=== PATIENT | female | born 1990 | race Caucasian/White ===

== ENCOUNTER 2016-08-14 08:16 | Day surgery (SDC) | payer BC, MEDICAID ==
[2016-08-14] MEDS ORDERED: FAMOTIDINE INJ/PF 20 MG/2 ML SDV IV ONE (08:56)
[2016-08-14] MEDS ORDERED: MIDAZOLAM 2 MG/2 ML INJ ONE (09:23)
[2016-08-14] MEDS ORDERED: DEXMEDETOMIDINE INJ 80 MCG/20 ML VIAL IV ONE (09:24)
[2016-08-14] MEDS ORDERED: PROPOFOL INJ 200 MG/20 ML VIAL IV ONE (09:24)
[2016-08-14] MEDS ORDERED: MORPHINE SULFATE 10 MG/ML INJ IV PRN (10:22)
[2016-08-14] MEDS ORDERED: MEPERIDINE HCL/PF INJ 25 MG/1 ML DISP.SYRIN IV PRN (10:22)
[2016-08-14] MEDS ORDERED: DIPHENHYDRAMINE HCL 50 MG/ML VIAL IV PRN (10:22)
[2016-08-14] MEDS ORDERED: FENTANYL CITRATE INJ/PF 100 MCG/2 ML AMPUL IV PRN ×3 (10:22)
[2016-08-14] MEDS ORDERED: OXYCODONE-ACETAMINOPHEN 5-325 MG TABLET PO PRN ×2 (10:22)
[2016-08-14] MEDS ORDERED: PROMETHAZINE HCL INJ 25 MG/1 ML VIAL IV PRN ×2 (10:22)
[2016-08-14] MEDS ORDERED: DEXTROSE 5%-1/2 NORMAL SALINE 1,000 ML IV PRN (10:44)
--- NOTE | 2016-08-14 10:51 | Operative Report ---
Operative Report DATE OF SURGERY: 08/14/16 Operative Report: The risks, benefits and alternatives of the procedure including risks of bleeding, perforation requiring surgery are explained to the patient in detail and informed consent is obtained. Patient is placed in a left, lateral decubital position and brought back to the operating room. Timeout is called. Propofol medications administered. An Olympus videoscope was inserted into the patient's rectum. The scope was then advanced all the way to the cecum. The cecum was identified by the usual anatomical landmarks of the ileocecal valve as well as the appendiceal office. Photodocumentation was obtained. The scope was then sequentially pulled back via the various segments of the colon including the ascending colon, hepatic flexure, transverse colon, splenic flexure, descending colon and finally into the rectosigmoid colon. Prep is good. Following this the patient's stretcher was turned around and the EGD performed The risks benefits and alternatives of the procedure explained to the patient in detail and informed consent is obtained that GIF Olympus video scope was inserted into the patient's mouth and hypopharynx the esophagus is identified intubated and insufflated the scope was then advanced through the esophagus stomach and duodenum retroflexion maneuver is done the esophagus stomach and first and second portions of the duodenum examined PREOPERATIVE DIAGNOSIS: Change of bowel habits. Early satiety POSTOPERATIVE DIAGNOSIS: Mild right-sided inflammation status post biopsy rule out collagenous, microscopic, lymphocytic colitis. There is a submucosal lesion noted around the sigmoid colon. Visualization was not good because the colon is very spastic. It could very well just be herniation into the lumen. However biopsies are obtained the area injected with Y[place]a ink for future location if biopsies are positive. Gastritis status post biopsy. Hiatal hernia. Esophageal ulcer OPERATION: Colonoscopy with submucosal injection. Colonoscopy with biopsy. EGD with biopsy SURGEON: NAYAN ARTHUR ANESTHESIA: LMAC TISSUE REMOVED OR ALTERED: Gastric specimen obtained rule out Helicobacter pylori. Colon specimens obtained as described above COMPLICATIONS: None. ESTIMATED BLOOD LOSS: none. INTRAOPERATIVE FINDINGS: as described above PROCEDURE: Patient tolerated the procedure well. No immediate postprocedure complications are noted. Patient is discharged in good condition. Discharge date 08/14/2016 Discharge diet: Regular. Discharge activity: Regular. Patient does have a 2-3 week follow-up to discuss findings. Patient is instructed to call the office or proceed to the emergency room if there are any further problems or questions. We'll follow-up on biopsy.
[2016-08-14 12:18] VITALS: BP 98/60
[2016-08-14] MEDS ORDERED: LIDOCAINE 2% INJ-PF (20 MG/ML) 10 ML AMPUL ONE (14:26)
== END 2016-08-14 12:20 | disposition home or self-care (01) ==
LOC: OROUT 08:16
PROVIDERS: ATTEND Internal Medicine Gastroenterology
PROC: 0DB68ZX Excision of Stomach, Via Natural or Artificial Opening Endoscopic, Diagnostic (ICD-10-PCS; principal; 2016-08-14 10:00)
PROC: 0DBF8ZZ Excision of Right Large Intestine, Via Natural or Artificial Opening Endoscopic (ICD-10-PCS; 2016-08-14 10:00)
PROC: 0DBN8ZZ Excision of Sigmoid Colon, Via Natural or Artificial Opening Endoscopic (ICD-10-PCS; 2016-08-14 10:00)
DX: K29.50 Unspecified chronic gastritis without bleeding (principal); K58.9 Irritable bowel syndrome, unspecified; K52.9 Noninfective gastroenteritis and colitis, unspecified; K44.9 Diaphragmatic hernia without obstruction or gangrene; K22.10 Ulcer of esophagus without bleeding; K50.90 Crohn's disease, unspecified, without complications; D64.9 Anemia, unspecified; F17.210 Nicotine dependence, cigarettes, uncomplicated; E66.9 Obesity, unspecified; Z68.30 Body mass index [BMI] 30.0-30.9, adult; Z79.899 Other long term (current) drug therapy
CPT/HCPCS: 43239; 45380; 45381; 81025; 88342 ×2; 88305 ×2; J2250; J2704; S0028; J3490 ×2; 810